=== PATIENT | female | born 1995 | race Caucasian/White ===

== ENCOUNTER 2017-07-07 11:53 | Day surgery (SDC) | payer OTHER ==
[~2017-07-07] VITALS: Ht 167.6 cm; Wt 43.5 kg
[~2017-07-07 11:53] MED LIST: BUSP5 PO; LORA2L PO; MUPIROCIN15 GM TOP; NAPR500 PO; TEMA7.5 PO; Voltaren100 GM TOP
[2017-07-07] MEDS ORDERED: Percocet 5-3251 EACH PO (13:06)
[2018-04-09] MEDS ORDERED: LORA1 PO (11:13)
[2018-04-09] MEDS ORDERED: BUSP10 PO (11:14)
[2018-04-09] MEDS ORDERED: Voltaren100 GM TOP (11:15)
[2018-04-09] MEDS ORDERED: TEMA7.5 PO (11:17)
[2018-04-09] MEDS ORDERED: Naproxen375 M1 PO (11:17)
[2018-04-09] MEDS ORDERED: IBUP800 PO (11:18)
[2018-04-09] MEDS ORDERED: Percocet 5-3251 EACH PO (11:18)
[2018-04-09] MEDS ORDERED: ONDA4 PO (11:19)
[2018-04-09] MEDS ORDERED: Omeprazole20 M1 PO (11:21)
[2018-04-09] MEDS ORDERED: Bentyl20 MG PO (11:22)
[2018-04-09] MEDS ORDERED: NAPR550 PO (11:23)
== END 2017-07-07 23:56 | disposition home or self-care (01) ==
LOC: ORSCMMR 11:53
PROVIDERS: Obstetrics & Gynecology
PROC: 0WJJ4ZZ Inspection of Pelvic Cavity, Percutaneous Endoscopic Approach (ICD-10-PCS; principal; 2017-07-07 13:45)
DX: R10.2 Pelvic and perineal pain (principal); N92.0 Excessive and frequent menstruation with regular cycle
CPT/HCPCS: J0171; J0690; J1100; J1885; J2250; J2270; J2405; J2710; J3010; J7030; J7120

== ENCOUNTER → 2022-10-21 | Outpatient (CLI) | payer OTHER ==
[~2022-10-21] MED LIST changes: +BUSP10 PO; +Bentyl20 MG PO; +IBUP800 PO; +LORA1 PO; +NAPR550 PO; +Naproxen375 M1 PO; +ONDA4 PO; +Omeprazole20 M1 PO; +Percocet 5-3251 EACH PO
== END | disposition home or self-care (01) ==
LOC: LAB SHORT 18:58 → LAB 18:58
DX: R20.8 Other disturbances of skin sensation (principal)
CPT/HCPCS: 84443

== ENCOUNTER → 2023-09-06 | Outpatient (CLI) | payer OTHER ==
[2023-09-06 19:43] LABS: BASOPHILS ABSOLUTE AUTO 0.07 K/mm3 (0.00-0.23); BASOPHILS PERCENT AUTO 1 % (0-2); EOSINOPHILS ABSOLUTE AUTO 0.28 K/mm3 (0.00-0.68); EOSINOPHILS PERCENT AUTO 2 % (0-6); Hematocrit 42.2 % (33.0-51.0); Hemoglobin 13.7 g/dL (11.5-16.0); IMMATURE GRAN ABSOLUTE AUTO 0.06 K/mm3 (0.00-0.10); IMMATURE GRAN PERCENT AUTO 0 % (0-1); LYMPHOCYTES ABSOLUTE AUTO 4.55 K/mm3 (0.84-5.20); LYMPHOCYTES PERCENT AUTO 33 % (21-46); MONOCYTES PERCENT AUTO 7 % (4-13); Mean Corpuscular HGB 30.4 pg (26.0-34.0); Mean Corpuscular HGB Conc 32.5 g/dL (31.5-36.5); Mean Corpuscular Volume 94 fL (80-100); Mean Platelet Volume 9.2 fL (9.1-12.4); NEUTROPHILS ABSOLUTE AUTO 8.06 K/mm3 (1.96-9.15); NEUTROPHILS PERCENT AUTO 58 % (41-73); Platelet Count 559 K/mm3 (150-400); RDW Coefficient Variation 13.5 % (11.7-14.2); RDW Standard Deviation 46.4 fL (35.1-46.3); White Blood Cell Count 14.02 K/mm3 (4.00-11.30)
[2023-09-06 20:21] LABS: Albumin, Blood 3.6 g/dL (3.4-5.0); Albumin/Globulin Ratio 0.9 (0.8-1.8); Bilirubin, Total 0.3 mg/dL (0.1-1.0); Bun/Creatinine Ratio 16.4 (12.0-20.0); Calcium, Blood 9.3 mg/dL (8.5-10.1); Creatinine, Blood 0.67 mg/dL (0.40-1.00); Globulin, Blood 4.1 g/dL (2.2-4.0); Potassium, Blood 3.6 mmol/L (3.5-5.5); Thyroid Stimulating Hormone 1.84 uIU/mL (0.360-4.800); Total Protein, Blood 7.7 g/dL (6.4-8.2)
== END ==
LOC: LAB SHORT 18:33 → LAB 18:33
PROVIDERS: Family Medicine
DX: R19.7 Diarrhea, unspecified (principal); R53.83 Other fatigue
CPT/HCPCS: 80053; 84443; 85025